=== PATIENT | male | born 1965 | race Caucasian/White ===

== ENCOUNTER 2020-12-15 14:10 | Inpatient (IN) | payer OTHER ==
[~2020-12-15 14:10] MED LIST: Iopamidol 370 76% 100 ML VIAL ONE
[2020-12-15] MEDS ORDERED: Fentanyl 100 MCG/2 ML VIAL ONE (14:55)
[2020-12-15] MEDS ORDERED: Ondansetron PF 4 MG/2 ML Vial ONE ×2 (14:55→17:03)
[2020-12-15 15:08] LABS: #Basophils 0.1 thou/uL (0.0-0.2); #Eosinphils 0.1 thou/uL (0.0-0.7); #Lymphocytes 2.3 thou/uL (1.20-3.40); #Monocytes 0.8 thou/uL (0.11-0.59); #Neutrophils 7.6 thou/uL (1.40-6.50); %Basophils 0.8 % (0.0-1.0); %Eosinophils 1.2 % (0.0-10.0); %Lymphocytes 21.1 % (21.0-51.0); %Neutrophils 69.9 % (42.0-75.0); Hemoglobin 14.4 g/dL (14.0-18.0); Mean Corpuscular HGB CONC 34.7 g/dL (32.0-36.0); Mean Corpuscular Hemoglobin 32.4 pg (27.0-31.0); Mean Corpuscular Volume 93.5 fL (78.0-98.0); Mean Platelet Volume 8.5 fL (7.4-10.4); Platelet Count 200 thou/uL (130-400); RBC Distribution Width 11.4 % (11.5-14.5); Red Blood Cell (RBC) Count 4.43 mill/uL (4.70-6.10); White Blood Cell (WBC) Count 10.8 thou/uL (4.8-10.8)
[2020-12-15 15:20] LABS: Prothrombin Time 12.7 sec (12.0-14.7)
[2020-12-15 15:21] LABS: PTT 22.9 sec (22.9-36.1)
[2020-12-15 15:32] LABS: ALT (SGPT) 27 U/L (8-55); AST (SGOT) 34 U/L (5-34); Albumin 4.1 g/dL (3.5-5.0); Alkaline Phosphatase 83 U/L (40-110); Anion Gap 12 mmol/L (10-20); BUN (Urea Nitrogen) 21 mg/dL (8.4-25.7); Bilirubin, Total 0.3 mg/dL (0.2-1.2); CK (CPK) 568 U/L (30-200); Calc. Creatinine Clearance 0 mL/min (70-130); Calcium 9.2 mg/dL (7.8-10.44); Carbon Dioxide 26 mmol/L (22-29); Chloride 106 mmol/L (98-107); Globulin 2.6 g/dL (2.4-3.5); Glucose 124 mg/dL (70-105); Potassium 4.2 mmol/L (3.5-5.1); Protein, Total 6.7 g/dL (6.0-8.3); Sodium 140 mmol/L (136-145)
[2020-12-15] MEDS ORDERED: Neomycin-Polymyxin 1 ML AMP ONE (16:10)
[2020-12-15] MEDS ORDERED: Thrombin 5000 UNITS/5 ML VIAL ONE (16:10)
[2020-12-15] MEDS ORDERED: Fentanyl 250 MCG/5 ML VIAL ONE (16:18)
[2020-12-15 16:50] LABS: Bilirubin Negative (Negative); Blood, Urine Negative (Negative); Clarity Clear (Clear); Glucose, Urine (Dipstick) Normal (Negative); Ketone, Urine Negative (Negative); Leukocyte Negative Leu/uL (Negative); Nitrite Negative (Negative); Protein, Urine (Dipstick) Negative (Neg-Trace); Urobilinogen Normal mg/dL (Less than 2); pH, Urine 6.5 (5.0-9.0)
[2020-12-15 16:53] LABS: Specific Gravity, Urine 1.044 (1.002-1.036)
[2020-12-15] MEDS ORDERED: Succinylcholine 200 MG/10 ml SYRINGE FS ONE (17:03)
[2020-12-15] MEDS ORDERED: ePHEDrine 50 MG/ML VIAL ONE (17:03)
[2020-12-15] MEDS ORDERED: Glycopyrrolate 0.2 MG/ML 5 ML SYRINGE ONE (17:03)
[2020-12-15] MEDS ORDERED: Dexamethasone 20 MG/5 ML VIAL ONE (17:03)
[2020-12-15] MEDS ORDERED: Rocuronium Bromide 10 MG/ML (10ML VIAL) ONE (17:03)
[2020-12-15] MEDS ORDERED: Lidocaine 1% PF 5 ML VIAL ONE (17:03)
[2020-12-15] MEDS ORDERED: PHENYLEPHRINE-NS 100 MCG/ML 10 ML SYRINGE ONE (17:03)
[2020-12-15] MEDS ORDERED: PROPOFOL 200 MG/20 ML VIAL ONE (17:03)
[2020-12-15] MEDS ORDERED: Promethazine HCl 25 MG/ML VIAL IVPB PRN (18:34)
[2020-12-15] MEDS ORDERED: Ondansetron HCl/PF 4 MG/2 ML Vial IVP PRN (18:34)
[2020-12-15] MEDS ORDERED: Promethazine HCl 25 MG/ML VIAL IM PRN ×3 (18:34→20:12)
[2020-12-15] MEDS ORDERED: Sodium Chloride 0.9% 1,000 ML IV SCH (19:00)
[2020-12-15] MEDS ORDERED: traMADol HCl 50 MG TAB PO PRN (20:12)
[2020-12-15] MEDS ORDERED: hydrALAZINE 20 MG/ML VIAL SLOW IVP PRN (20:12)
[2020-12-15] MEDS ORDERED: Dextrose 50% Abboject 50 ML SYRINGE SLOW IVP PRN (20:12)
[2020-12-15] MEDS ORDERED: Morphine 2 MG/ML VIAL SLOW IVP PRN (20:12)
[2020-12-15] MEDS ORDERED: Dextrose 5% in Water 1,000 ML IV PRN (20:12)
[2020-12-15] MEDS ORDERED: Cyclobenzaprine 10 MG TAB PO PRN (20:12)
[2020-12-15] MEDS ORDERED: Ondansetron PF 4 MG/2 ML Vial IVP PRN (20:12)
[2020-12-15] MEDS ORDERED: Ondansetron ODT 4 MG TAB PO PRN (20:12)
[2020-12-15] MEDS: traMADol HCl 50 MG TAB PO PRN (21:40)
[2020-12-15] MEDS: Acetaminophen 500 MG TAB PO SCH (21:40)
[2020-12-15] MEDS: Sodium Chloride 0.9% 1,000 ML IV SCH (21:41)
[2020-12-15] MEDS: Famotidine 20 MG TAB PO SCH (21:43)
[2020-12-15 22:05] VITALS: BMI 31.1
[2020-12-15 23:11] LABS: SARS-CoV-2 PCR by NAA Not Detected (NotDetected)
[2020-12-16] MEDS: CEFAZOLIN 2 GM in Premix Bag 1 BAG IVPB SCH ×2 (01:39→09:31)
[2020-12-16] MEDS: Acetaminophen 500 MG TAB PO SCH ×5 (03:00→18:32)
[2020-12-16] MEDS: Sodium Chloride 0.9% 1,000 ML IV SCH ×2 (04:19→20:43)
[2020-12-16] MEDS: traMADol HCl 50 MG TAB PO PRN ×3 (04:48→17:45)
[2020-12-16 06:17] LABS: #Lymphocytes 0.8 thou/uL (1.20-3.40); #Monocytes 0.4 thou/uL (0.11-0.59); #Neutrophils 8.2 thou/uL (1.40-6.50); %Basophils 0.1 % (0.0-1.0); %Eosinophils 0.1 % (0.0-10.0); %Lymphocytes 8.7 % (21.0-51.0); %Monocytes 4.6 % (0.0-10.0); %Neutrophils 86.6 % (42.0-75.0); Mean Corpuscular Hemoglobin 32.7 pg (27.0-31.0); Mean Corpuscular Volume 93.4 fL (78.0-98.0); Mean Platelet Volume 8.9 fL (7.4-10.4); Platelet Count 188 thou/uL (130-400); RBC Distribution Width 11.3 % (11.5-14.5); Red Blood Cell (RBC) Count 3.99 mill/uL (4.70-6.10); White Blood Cell (WBC) Count 9.5 thou/uL (4.8-10.8)
[2020-12-16 06:37] LABS: Phosphorus 2.8 mg/dL (2.3-4.7)
[2020-12-16 06:40] LABS: Anion Gap 7 mmol/L (10-20); BUN (Urea Nitrogen) 13 mg/dL (8.4-25.7); CK (CPK) 1225 U/L (30-200); Calc. Creatinine Clearance 137 mL/min (70-130); Calcium 8.3 mg/dL (7.8-10.44); Carbon Dioxide 26 mmol/L (22-29); Chloride 108 mmol/L (98-107); Glucose 134 mg/dL (70-105); Sodium 137 mmol/L (136-145)
[2020-12-16] MEDS: Famotidine 20 MG TAB PO SCH ×2 (09:30→20:32)
[2020-12-16] MEDS ORDERED: Acetaminophen 500 MG TAB PO SCH (18:00)
[2020-12-16] MEDS ORDERED: Multivit, Therapeutic 1 TAB PO SCH (21:00)
[2020-12-17] MEDS: Acetaminophen 500 MG TAB PO SCH ×3 (01:00→12:41)
[2020-12-17] MEDS: Sodium Chloride 0.9% 1,000 ML IV SCH ×2 (03:40→11:53)
[2020-12-17 06:30] LABS: Anion Gap 7 mmol/L (10-20); BUN (Urea Nitrogen) 11 mg/dL (8.4-25.7); CK (CPK) 1149 U/L (30-200); Calc. Creatinine Clearance 142 mL/min (70-130); Calcium 8.3 mg/dL (7.8-10.44); Carbon Dioxide 30 mmol/L (22-29); Chloride 109 mmol/L (98-107); Glucose 90 mg/dL (70-105); Phosphorus 1.7 mg/dL (2.3-4.7); Potassium 4.2 mmol/L (3.5-5.1); Sodium 142 mmol/L (136-145)
[2020-12-17] MEDS ORDERED: Sodium Phosphate 15 MMOL in Sodium Chloride 0.9% 250 ML 250 ML IVPB SCH (07:30)
[2020-12-17] MEDS: Famotidine 20 MG TAB PO SCH (08:44)
[2020-12-17] MEDS ORDERED: Multivitamin W/ Minerals 1 TAB PO SCH (09:00)
[2020-12-17 11:24] VITALS: BP 140/82; TEMP 98.4
== END 2020-12-17 15:55 | disposition home or self-care (01) | DRG 472 ==
LOC: ERS 14:10 → ERHOLD 16:01 → SURG A 17:18
PROVIDERS: ADMIT Surgery; ATTEND Surgery
PROC: 0RG1070 Fusion of Cervical Vertebral Joint with Autologous Tissue Substitute, Anterior Approach, Anterior Column, Open Approach (ICD-10-PCS; principal; 2020-12-16)
PROC: 0RB30ZZ Excision of Cervical Vertebral Disc, Open Approach (ICD-10-PCS; 2020-12-16)
DX: S12.490A Other displaced fracture of fifth cervical vertebra, initial encounter for closed fracture (principal); S22.22XA Fracture of body of sternum, initial encounter for closed fracture; S27.892A Contusion of other specified intrathoracic organs, initial encounter; M19.90 Unspecified osteoarthritis, unspecified site; M45.2 Ankylosing spondylitis of cervical region; S12.590A Other displaced fracture of sixth cervical vertebra, initial encounter for closed fracture; Z20.822 Contact with and (suspected) exposure to COVID-19; Z87.891 Personal history of nicotine dependence; V49.9XXA Car occupant (driver) (passenger) injured in unspecified traffic accident, initial encounter
CPT/HCPCS: 36415; 70450; 70498; 71260; 72125; 74177; 76000; 80048; 80053; 81003; 82550; 83735; 84100; 84484; 85025; 85610; 85730; 93005; 96374; 96375; C1713; C1776; G0390; J0690; J1100; J2405; J2704; J3010; J3370; J3490; J7050; Q9967; U0003; U0005